=== PATIENT | female | born 1970 | race Caucasian/White ===

== ENCOUNTER 2024-01-09 08:45 | Day surgery (SDC) | payer SELFPAY ==
[2024-01-02 09:54] VITALS: BMI 21.9
[2024-01-09] MEDS ORDERED: ceFAZolin SODIUM 1 GM VIAL ONE ×4 (11:07→18:47)
[2024-01-09] MEDS ORDERED: EPINEPHrine/PF 1 MG/1 ML (1:1,000) AMPULE ONE (11:07)
[2024-01-09] MEDS ORDERED: GENTAMICIN SO4 80 MG/2 ML VIAL ONE ×2 (11:07→17:03)
[2024-01-09] MEDS ORDERED: BACITRACIN ZINC 15 GM TUBE TOPICAL OINTMENT ONE (11:08)
[2024-01-09] MEDS ORDERED: LIDOCAINE HCL 1%, 10 MG/ML (20ML VIAL) ONE (11:08)
[2024-01-09] MEDS ORDERED: BUPIVACAINE HCL/PF 0.25% (2.5MG/ML) 10 ML VIAL ONE ×2 (11:08→17:03)
[2024-01-09] MEDS ORDERED: LIDOCAINE 1%/EPI 1:100000 (20 ML MULTI DOSE VIAL) ONE (11:08)
[2024-01-09] MEDS ORDERED: BUPIVACAINE HCL/PF 2.5 MG/ML - 30 ML VIAL IJ ONE (11:09)
[2024-01-09] MEDS ORDERED: GUM MASTIC/STORAX/MSAL/ALCOHOL 1 DRP DROPSBTL MC ONE (11:09)
[2024-01-09] MEDS ORDERED: ONDANSETRON 4 MG/2 ML VIAL IVPUSH PRN ×2 (12:28→22:54)
[2024-01-09] MEDS ORDERED: ACETAMINOPHEN 1000 MG/100 ML BAG IVPB PRN (12:28)
[2024-01-09] MEDS ORDERED: oxyCODONE HCL 5 MG TABLET PO PRN ×3 (12:28→23:05)
[2024-01-09] MEDS ORDERED: LACTATED RINGERS SOLUTION 1,000 ML IV SCH (12:30)
[2024-01-09] MEDS ORDERED: HYDROmorphone HCL/PF 1 MG/ML VIAL ONE ×2 (14:17→19:12)
[2024-01-09] MEDS ORDERED: PROPOFOL 80 ML ONE (14:18)
[2024-01-09] MEDS ORDERED: MIDAZOLAM HCL 2 MG/2 ML SINGLE DOSE VIAL ONE (14:18)
[2024-01-09] MEDS ORDERED: SEVOFLURANE 250 ML BTL ONE (14:18)
[2024-01-09] MEDS ORDERED: LIDOCAINE HCL/PF 2% SDV 5ML VIAL ONE (14:18)
[2024-01-09] MEDS ORDERED: ONDANSETRON 4 MG/2 ML VIAL ONE ×2 (14:18→20:56)
[2024-01-09] MEDS ORDERED: ROCURONIUM BROMIDE 50 MG/5 ML SYRINGE ONE ×2 (14:18→19:09)
[2024-01-09] MEDS ORDERED: DEXAMETHASONE SOD PHOSPHATE 4 MG/1 ML VIAL ONE (14:18)
[2024-01-09] MEDS: BUPIVACAINE HCL/PF 0.25% (2.5MG/ML) 10 ML VIAL IJ ONE ×3 (17:05→21:50)
[2024-01-09] MEDS ORDERED: PROPOFOL 20 ML ONE ×3 (18:09→19:42)
[2024-01-09] MEDS ORDERED: SUCCINYLCHOLINE CHLORIDE 200 MG/10 ML SYRINGE ONE (20:43)
[2024-01-09] MEDS ORDERED: FENTANYL CITRATE/PF 50 MCG/ML VIAL ONE (20:57)
[2024-01-09] MEDS ORDERED: PROMETHAZINE HCL 25 MG/1 ML VIAL ONE (20:57)
[2024-01-09] MEDS ORDERED: ACETAMINOPHEN INJECTION 100 ML IVPB ONE ×2 (20:57→21:43)
[2024-01-09] MEDS ORDERED: SUGAMMADEX SODIUM 200 MG/2 ML VIAL ONE (21:17)
[2024-01-09] MEDS ORDERED: PROMETHAZINE HCL 25 MG/1 ML VIAL IVPB PRN (22:18)
[2024-01-09] MEDS ORDERED: ACETAMINOPHEN 325 MG TABLET (FP) PO PRN (22:54)
[2024-01-09] MEDS ORDERED: HYDROmorphone HCl 2 MG/ML VIAL IVPB PRN (23:06)
[2024-01-10] MEDS: LACTATED RINGERS SOLUTION 1,000 ML IV SCH (01:03)
[2024-01-10] MEDS: CEFAZOLIN 1 GM in DEXTROSE 5%-WATER - 50 ML IVPB SCH (01:04)
[2024-01-10 01:55] VITALS: RESP 18
[2024-01-10] MEDS: oxyCODONE HCL 5 MG TABLET PO PRN (06:30)
[2024-01-10] MEDS: DOXYCYCLINE HYCLATE 100 MG CAPSULE PO SCH (09:00)
[2024-01-10] MEDS: ENOXAPARIN NA (PORCINE) 40 MG/0.4 ML DISP.SYRIN SQ ONE (09:00)
[2024-01-10 13:34] VITALS: BP 108/72; PULSE 75; TEMP 99.1
== END 2024-01-10 15:00 | disposition home or self-care (01) ==
LOC: FASU 08:45 → FM/S 22:50 → FASU 01-10 15:00
PROVIDERS: ATTEND Surgery
CPT/HCPCS: 81025; 94760; J0131; L8600